=== PATIENT | male | born 1985 ===

== ENCOUNTER 2022-03-28 23:29 | Emergency (ER) | payer BC ==
[2022-03-28] MEDS ORDERED: Sodium Chloride 0.9% 2.5 ML Syringe FLUSH PRN (23:34)
[2022-03-28] MEDS ORDERED: Sodium Chloride 0.9% 10 ML Syringe FLUSH PRN (23:34)
[2022-03-29 00:09] LABS: CARBON DIOXIDE,CO2 24.1 mmol/L (21.0-32.0); POTASSIUM,K 3.7 mmol/L (3.5-5.1)
[2022-03-29] MEDS ORDERED: Sodium Chloride 0.9% 1,000 ML IV ONE (00:31)
== END 2022-03-29 07:04 | disposition home or self-care (01) ==
LOC: MW.ED 23:29
DX: F10.10 Alcohol abuse, uncomplicated (principal); F19.90 Other psychoactive substance use, unspecified, uncomplicated; E87.1 Hypo-osmolality and hyponatremia; Z88.1 Allergy status to other antibiotic agents; Y90.6 Blood alcohol level of 120-199 mg/100 ml
CPT/HCPCS: 36415; 70450; 80053; 80307; 85025; 93005; 96360; 99284; J3490; J7030; 93010